=== PATIENT | female | born 2000 | race Caucasian/White ===

== ENCOUNTER 2018-05-19 17:48 | Emergency (ER) | payer MEDICAID ==
[~2018-05-19] VITALS: Ht 157.5 cm; Wt 68.0 kg
[2018-05-19 17:57] VITALS: BP 132/72
[2018-05-19 18:10] VITALS: BP 132/72
--- NOTE | 2018-05-19 18:10 | NUR ---
17 yo f bib self head pain x 3 days s/p injury, throbbing pain. reports that nothing has helped. reports n/v, vomitted 2 times today. aaox4, gcs 15, perrla intact, vss at this time, bed down, bedrail up x 1, er md aware and notified of pt status. hx denies rx; ibuprofen, tylenol and excedrin
--- NOTE | 2018-05-19 18:35 | NUR ---
[place] police department called, spoke to yash, they will be sending an officer down to talk to pt.
--- NOTE | 2018-05-19 18:45 | NUR ---
PATIENT LEFT WITHOUT BEING SEEN BY DR. castelan. NO FURTHER CARE PROVIDED FOR PATIENT.
== END 2018-05-19 18:45 | disposition left against medical advice (07) ==
LOC: MED 17:48
DX: R51 Headache (principal); R11.2 Nausea with vomiting, unspecified
CPT/HCPCS: 81025